=== PATIENT | female | born 1995 | race Caucasian/White ===

== ENCOUNTER → 2018-05-05 | Day surgery (SDC) | payer OTHER ==
[~2018-05-05] MED LIST: ADDERALL 10 MG10 MG; EPHEDRINE SULFATE INJ 50 MG/10 ML SYR ONE; FENTANYL CITRATE/PF 100MCG/2 ML INJ ONE; LORAZEPAM0.5 MG PO; METOCLOPRAMIDE HCL 10 MG/2ML VIAL ONE; MIDAZOLAM HCL 2 MG/2 ML VIAL ONE; PROPOFOL IV EMULSION 10 MG/ML 50 ML VIAL ONE
--- OUTSIDE RECORDS SUMMARY | 2018-05-05 11:24 | XMS REPORT | Clinical Summary ---
Author Author RAD [facility] Organization [facility] Address Unknown Phone Unavailable Care Team Providers Care Commercial Underwriter Name Role Phone Sharpanderson PCP Allergies No Known Allergies Medications End Date Status Medication Sig Dispensed Refills Start Date Active venlafaxine (EFFEXOR) 75 Take 75 mg by 0 MG tabletIndications: mouth 2 (two) Abnormal liver enzymes, times daily. Delivery normal, Immunity status testing, Urinary tract infection without hematuria, site unspecified Active ALPRAZolam (XANAX) 0.25 Take 0.25 mg 0 MG tabletIndications: by mouth Abnormal liver enzymes, every night Delivery normal, Immunity as needed for status testing, Urinary Anxiety. tract infection without hematuria, site unspecified 06/07/2017 Discontinued NORETHINDRONE AC-ETH Take by 0 ESTRADIOL (LOESTRIN mouth. 1.08/24, 21, ORAL)Indications: Abnormal liver enzymes, Delivery normal, Immunity status testing, Urinary tract infection without hematuria, site unspecified Active Problems No known active problems Encounters Care Team Description Date Type Specialty Kristen Palencia Appointment (unable to leave a . letter sent to patient) 02/02/2018 Telephone Hepatology Elizabeth Hansen E 07/06/2017 Abstract Hepatology Oxana Ramirez RN Abnormal liver function 06/21/2017 Orders Only Hepatology Roddy Fisher MD Abnormal liver function (Primary Dx); Immunity status testing; Positive REYES (antinuclear antibody); CMV (cytomegalovirus infection) status negative 06/07/2017 Office Visit Hepatology after 05/04/2017 Family History Medical History Relation Name Comments No Known Problem Father No Known Problem Mother Relation Name Status Comments Father Mother Social History Date Tobacco Use Types Packs/Day Years Used Current Every Day Smoker 1 Smokeless Tobacco: Never Used Alcohol Use Drinks/Week oz/Week Comments No Sex Assigned at Date Recorded Not on file Industry Job Start Date Occupation Not on file Not on file Not on file Travel End Travel History Travel Start No recent travel history available. Last Filed Vital Signs Time Taken Vital Sign Reading - Blood Pressure - - Pulse - - Temperature - - Respiratory Rate - - Oxygen Saturation - - Inhaled Oxygen - Concentration 06/07/2017 1:17 PM CDT Weight 52.8 kg (116 lb 4.8 oz) - Height - 06/07/2017 1:17 PM CDT Body Mass Index 21.97 Plan of Treatment Health Maintenance Due Date Last Done Comments INFLUENZA VACCINE 12/26/2017 Procedures Comments Procedure Name Priority Date/Time Associated Diagnosis HEPATIC FUNCTION PANEL Routine 06/07/2017 Abnormal liver function 2:29 PM CDT after 05/04/2017 Results * Hepatic function panel (06/07/2017 2:29 PM CDT) Protein, Total 7.1 6.0 - 8.3 gm/dL [facility] Albumin 4.4 3.5 - 5.0 g/dL [facility] Total Bilirubin 0.3 0.2 - 1.2 mg/dL [facility] Bilirubin, Direct 0.2 0.1 - 0.5 mg/dL [facility] Alkaline Phosphatase 79 40 - 150 U/L [facility] AST 22 5 - 34 U/L [facility] ALT 28 6 - 55 U/L [facility] Specimen Blood Performing Organization Address City/State/Zipcode Phone Number [facility] [address], [place] [id number] [facility] after 05/04/2017 Insurance Payer Benefit Subscriber ID Type Phone Address Plan / Group BLUE CROSS/BLUE SHIELD BCBS PPO xxxxxxxxxxxxxxx PPO [phone] [address] [place] [address] CHOICE MEDICAID MEDICAID xxxxxxxxx Medicaid [place]
--- OUTSIDE RECORDS SUMMARY | 2018-05-05 11:24 | XMS REPORT ---
Author [facility] Address Unknown Phone Unavailable Care Team Providers Care White Sourer Name Role Phone Andi ZURITA Unavailable Unavailable Payers Payer Name Policy Type Policy Number Effective Date Expiration Date Problems This patient has no known problems. Allergies, Adverse Reactions, Alerts Allergy Name Allergy Type Status Severity Reaction(s) Onset Date Inactive Date Treating Clinician Comments No Known Allergies DA Active U 2018-04-24 00:00:00 No Known Allergies DA Active U 2018-02-06 00:00:00 No Known Allergies DA Active U 2016-10-13 00:00:00 Medications This patient has no known medications. Results Test Description Test Time Test Comments Text Results Atomic Results Result Comments - CT ABD PELVIS W/CONT 2018-04-26 16:46:00 Name: JAIDEN AMIN [facility] : 1995 Age/S: 22 / F [address] [place] [address] Unit #: [id number] Loc: [place] [address] Phys: Ho Faust MD Acct: [id number] Dis Date: Status: REG ER PHONE #: [phone] Exam Date: 04/26/2018 1609 FAX #: [phone] Reason: Diffuse abd pain elevated lipase level EXAMS: CPT CODE: [id number] CT ABD PELVIS W/CONT 14458 EXAM: CT ABDOMEN AND PELVIS WITH CONTRAST DATE: 04/26/2018 11:44 AM : 1995; Age: 22 years y/o Female INDICATION: Diffuse abd pain elevated lipase level COMPARISON: None. TECHNIQUE: Volumetric CT of the abdomen and pelvis is acquired following the intravenous administration of contrast. Axial, coronal and sagittal images are provided. IV contrast: 100 mL Isovue Enteric contrast: 10 mL Gastrografin DLP: 180 mGy-cm CT imaging performed at this location utilizes radiation dose optimization techniques which include one or more of the following: - Automated exposure control -Adjustment of the mA and/or kV according to patient size -Use of iterative reconstruction technique FINDINGS: Lower thorax: Clear. Liver: Normal. Gallbladder: No calcified stones or wall thickening. Adrenals: Normal. Kidneys and ureters: Normal. Spleen: Normal. Pancreas: Normal. Gastrointestinal tract: Stomach: Not well distended which limits evaluation Small bowel: Normal. Appendix: Not seen. No inflammation. Colon: Normal. Peritoneum, mesentery and retroperitoneum: No free air, lymphadenopathy, ascites or loculated fluid. PAGE 1 Signed Report (CONTINUED) Name: JAIDEN AMIN AY [facility] : 1995 Age/S: 22 / F [address] [place] [address] Unit #: [id number] Loc: [place] [address] Phys: Ho Faust MD Acct: [id number] Dis Date: Status: REG ER PHONE #: [phone] Exam Date: 04/26/2018 1609 FAX #: [phone] Reason: Diffuse abd pain elevated lipase level EXAMS: CPT CODE: [id number] CT ABD PELVIS W/CONT 26598 <Continued> Reproductive organs: IUD is noted in place. Bladder: Normal. Soft tissues: Normal. Bones: No acute abnormality. IMPRESSION: 1. No acute intra-abdominal process. SL: [id number] at 1646 Reported and signed by: Nahomi Newell D.O. CC: Robson Miller MD; Ho Faust MD Technologist:RT Stefan(R) CTDI: DLP: Trnscb Date/Time: 04/26/2018 (1645) [email or web address] Orig Print D/T: S: 04/26/2018 (164) CTDI: DLP: PAGE 2 Signed Report COMPREHENSIVE METABOLIC PANEL 2018-04-26 15:31:00 SODIUM (test code=NA) 139 mEq/L 134-147 POTASSIUM (test code=K) 3.5 mEq/L 3.4-5.0 CHLORIDE (test code=CL) 106 mEq/L 100-108 CARBON DIOXIDE (test code=CO2) 28 mEq/L 21-33 ANION GAP (test code=GAP) 9 0-20 GLUCOSE (test code=GLU) 80 mg/dL 70-110 BLOOD UREA NITROGEN (test code=BUN) 12 mg/dL 7-18 GLOMERULAR FILTRATION RATE (test code=GFR) 127.5 110-120 Units of measure=ml/min/1.73 m2 CREATININE (test code=CREAT) 0.6 mg/dL 0.6-1.3 TOTAL PROTEIN (test code=PROT) 7.9 g/dL 6.4-8.2 ALBUMIN (test code=ALB) 4.20 g/dL 3.4-5.0 CALCIUM (test code=CA) 9.0 mg/dL 8.0-10.5 BILIRUBIN TOTAL (test code=BILT) 0.50 mg/dL 0.0-1.0 SGOT/AST (test code=AST) 9 IUnit/L 15-37 SGPT/ALT (test code=ALT) 30 IUnit/L 15-65 ALKALINE PHOSPHATASE TOTAL (test code=ALKP) 115 IUnit/L 20-125 [id number] 15:31:00* Test Item Value Reference Range Comments LIPASE (test code=LIP) 477 IUnit/L 73-393 HCG SERUM [id number] 15:31:00* Test Item Value Reference Range Comments HCG SERUM QUAL (test code=HCGQL) SERUM NEGATIVE NEGATIVE [id number] 15:31:00* Test Item Value Reference Range Comments TROPONIN-I (test code=TROPI) < 0.015 ng/mL 0.000-0.045 Negative: <=0.045 Positive: >=0.046 Correlation with serial results, other cardiac markers andclinical findings is necessary to determine the clinicalsignificance of this result. Results using different methodologies should not be comparedto one another as quantitative results may vary by method. URINALYSIS [id number] 15:28:00* Test Item Value Reference Range Comments UA COLOR (test code=COLU) COLORLESS YEL/STRAW UA APPEARANCE (test code=APPU) CLEAR CLEAR UA GLUCOSE DIPSTICK (test code=DGLUU) NEGATIVE NEGATIVE UA BILIRUBIN DIPSTICK (test code=BILU) NEGATIVE NEGATIVE UA KETONE DIPSTICK (test code=KETU) NEGATIVE NEGATIVE UA SPECIFIC GRAVITY (test code=SGU) 1.004 1.005-1.030 UA BLOOD DIPSTICK (test code=CAROLE) NEGATIVE NEGATIVE UA PH DIPSTICK (test code=JESS) 6.0 5.0-7.0 UA PROTEIN DIPSTICK (test code=PROU) NEGATIVE NEGATIVE UA UROBILINIOGEN DIPSTICK (test code=URO) 0.2 mg/dL 0.2-1.0 UA NITRITE DIPSTICK (test code=NIURKA) NEGATIVE NEGATIVE UA LEUKOCYTE ESTERASE DIPSTICK (test code=LEUU) NEGATIVE NEGATIVE UA WBC (test code=WBCU) 0-3 WBC/HPF 0-3 UA RBC (test code=RBCU) 0-3 RBC/HPF 0-3 UA BACTERIA (test code=BACU) NONE SEEN /HPF NONE SEEN UA SQUAMOUS CELLS (test code=SQU) 0-5 /HPF NONE SEEN UA TRANSITIONAL CELLS (test code=TRANU) TRACE /HPF NONE SEEN COMMENTS: Clean CatchCOMPREHENSIVE METABOLIC [id number] 15:27:00* Test Item Value Reference Range Comments SODIUM (test code=NA) 139 mEq/L 134-147 POTASSIUM (test code=K) 3.5 mEq/L 3.4-5.0 CHLORIDE (test code=CL) 106 mEq/L 100-108 CARBON DIOXIDE (test code=CO2) 28 mEq/L 21-33 ANION GAP (test code=GAP) 9 0-20 GLUCOSE (test code=GLU) 80 mg/dL 70-110 BLOOD UREA NITROGEN (test code=BUN) 12 mg/dL 7-18 GLOMERULAR FILTRATION RATE (test code=GFR) 127.5 110-120 Units of measure=ml/min/1.73 m2 CREATININE (test code=CREAT) 0.6 mg/dL 0.6-1.3 TOTAL PROTEIN (test code=PROT) 7.9 g/dL 6.4-8.2 ALBUMIN (test code=ALB) 4.20 g/dL 3.4-5.0 CALCIUM (test code=CA) 9.0 mg/dL 8.0-10.5 BILIRUBIN TOTAL (test code=BILT) 0.50 mg/dL 0.0-1.0 SGOT/AST (test code=AST) 9 IUnit/L 15-37 SGPT/ALT (test code=ALT) IUnit/L 15-65 ALKALINE PHOSPHATASE TOTAL (test code=ALKP) 115 IUnit/L 20-125 [id number] 15:27:00* Test Item Value Reference Range Comments LIPASE (test code=LIP) 477 IUnit/L 73-393 HCG SERUM [id number] 15:27:00* Test Item Value Reference Range Comments HCG SERUM QUAL (test code=HCGQL) SERUM NEGATIVE NEGATIVE [id number] 15:27:00* Test Item Value Reference Range Comments TROPONIN-I (test code=TROPI) < 0.015 ng/mL 0.000-0.045 Negative: <=0.045 Positive: >=0.046 Correlation with serial results, other cardiac markers andclinical findings is necessary to determine the clinicalsignificance of this result. Results using different methodologies should not be comparedto one another as quantitative results may vary by method. DRUGS OF ABUSE SCREEN [id number] 15:27:00* Test Item Value Reference Range Comments URN COCAINE (test code=COCAURN) NEGATIVE NEGATIVE URN CANNABINOIDS (test code=CANNABURN) NEGATIVE NEGATIVE URN AMPHETAMINE (test code=AMPHETURN) NEGATIVE NEGATIVE URN BARBITURATE (test code=BARBITURN) NEGATIVE NEGATIVE URN BENZODIAZEPINE (test code=BENZOURN) NEGATIVE NEGATIVE Cut-off value:200 ng/mL URN OPIATES (test code=OPIATURN) NEGATIVE NEGATIVE Cut-off value:2000 ng/mL URN PHENCYCLIDINE (PCP) (test code=PHENCURN) NEGATIVE NEGATIVE Cutoffs:Barbiturates 200 ng/mLBenzodiazepines 200 ng/mLTHC Cannabinoids 50 ng/mLOpiates(Morphine) 2000 ng/mLAmphetamine 1000 ng/mLCocaine 300 ng/mLPCP phencyclidine 25 ng/mL Unconfirmed screening results shouldnot be used for non-medical purposes. PROTHROMBIN [id number] 15:21:00* Test Item Value Reference Range Comments PROTHROMBIN TIME PATIENT (test code=PTP) 11.5 SECONDS 9.3-12.9 INTERNATIONAL NORMAL RATIO (test code=INR) 1.0 0.8-1.2 TARGET INR BY INDICATION Indication INR1. Prophylaxis of venous thrombosis 2.0 - 3.0 (orthopedic surgery), Prophylaxis of venous thrombosis (other than high-risk surgery), Treatment of Deep Vein Thrombosis/Pulmonary Embolism, Prevention of systemic embolism - Tissue heart valves, Acute Myocardial Infarction (to prevent systemic embolism), Valvular heart disease, Atrial Fibrillation, Bileaflet mechanical valve in aortic position.2. Mechanical prosthetic valves (high risk), 2.5 - 3.5 Presence of Lupus Anticoagulant or Antiphospholipid Antibodies, Prevention of systemic embolism - Acute Myocardial Infarction (to prevent recurrent infarct). THROMBOPLASTIN TIME [id number] 15:21:00* Test Item Value Reference Range Comments THROMBOPLASTIN TIME PARTIAL (test code=PTT) 33.3 Seconds 25.0-39.5 Therapeutic Range: 61.8-83.8 Sec Effective 04/25/2013 COMPREHENSIVE METABOLIC [id number] 15:19:00* Test Item Value Reference Range Comments SODIUM (test code=NA) mEq/L 134-147 POTASSIUM (test code=K) mEq/L 3.4-5.0 CHLORIDE (test code=CL) mEq/L 100-108 CARBON DIOXIDE (test code=CO2) mEq/L 21-33 ANION GAP (test code=GAP) 0-20 GLUCOSE (test code=GLU) mg/dL 70-110 BLOOD UREA NITROGEN (test code=BUN) mg/dL 7-18 GLOMERULAR FILTRATION RATE (test code=GFR) 110-120 CREATININE (test code=CREAT) mg/dL 0.6-1.3 TOTAL PROTEIN (test code=PROT) g/dL 6.4-8.2 ALBUMIN (test code=ALB) g/dL 3.4-5.0 CALCIUM (test code=CA) mg/dL 8.0-10.5 BILIRUBIN TOTAL (test code=BILT) mg/dL 0.0-1.0 SGOT/AST (test code=AST) IUnit/L 15-37 SGPT/ALT (test code=ALT) IUnit/L 15-65 ALKALINE PHOSPHATASE TOTAL (test code=ALKP) IUnit/L 20-125 [id number] 15:19:00* Test Item Value Reference Range Comments LIPASE (test code=LIP) IUnit/L 73-393 HCG SERUM [id number] 15:19:00* Test Item Value Reference Range Comments HCG SERUM QUAL (test code=HCGQL) SERUM NEGATIVE NEGATIVE [id number] 15:19:00* Test Item Value Reference Range Comments TROPONIN-I (test code=TROPI) ng/mL 0.000-0.045 CBC W/AUTO [id number] 15:13:00* Test Item Value Reference Range Comments WHITE BLOOD CELL (test code=WBC) 5.07 x10 3/uL 4.5-11.0 RED BLOOD CELL (test code=RBC) 4.11 x10 6/uL 3.54-5.02 HEMOGLOBIN (test code=HGB) 12.6 g/dL 11.0-15.0 HEMATOCRIT (test code=HCT) 39.2 % 33.0-45.0 MEAN CELL VOLUME (test code=MCV) 95.4 fL 81.0-99.0 MEAN CELL HGB (test code=MCH) 30.7 pg 27.0-33.0 MEAN CELL HGB CONCETRATION (test code=MCHC) 32.1 g/dL 33.0-37.0 RED CELL DISTRIBUTION WIDTH CV (test code=RDW) 12.4 % 11.5-14.5 RED CELL DISTRIBUTION WIDTH SD (test code=RDW-SD) 43.5 fL 37.0-54.0 PLATELET COUNT (test code=PLT) 286 x10 3/uL 150-400 MEAN PLATELET VOLUME (test code=MPV) 9.1 fL 7.0-9.0 NEUTROPHIL % (test code=NT%) 56.2 % 56.0-77.0 IMMATURE GRANULOCYTE % (test code=IG%) 0.2 % 0.0-2.0 LYMPHOCYTE % (test code=LY%) 35.9 % 14.0-32.0 MONOCYTE % (test code=MO%) 6.9 % 4.8-9.0 EOSINOPHIL % (test code=EO%) 0.4 % 0.3-3.7 BASOPHIL % (test code=BA%) 0.4 % 0.0-2.0 NUCLEATED RBC % (test code=NRBC%) 0.0 % 0-0 NEUTROPHIL # (test code=NT#) 2.85 x10 3/uL 2.0-7.6 IMMATURE GRANULOCYTE # (test code=IG#) 0.01 x10 3/uL 0.00-0.03 LYMPHOCYTE # (test code=LY#) 1.82 x10 3/uL 1.0-3.8 MONOCYTE # (test code=MO#) 0.35 x10 3/uL 0.1-0.8 EOSINOPHIL # (test code=EO#) 0.02 x10 3/uL 0.0-0.2 BASOPHIL # (test code=BA#) 0.02 x10 3/uL 0.0-0.2 NUCLEATED RBC # (test code=NRBC#) 0.00 x10 3/uL 0.0-0.1 MANUAL DIFF REQUIRED (test code=MDIFF) NO - XR CHEST 1 [id number] 12:04:00 FAX: Robson Leonard [phone] [place]: St: PRE FAX: Ho Faust MD Name: JAIDEN AMIN [facility] : 1995 Age/S: 22/F [address] [place] [address] Unit #: [id number] Loc: [place] [address] Phys: Ho Faust MD Acct: [id number] Dis Date: Status: PRE ER PHONE #: [phone] Exam Date: 04/26/2018 1157 FAX #: [phone] Reason: Abdominal Pain EXAMS: CPT CODE: [id number] XR CHEST 1 V 01720 EXAM: XR CHEST 1 VIEW DATE: 04/26/2018 11:44 AM : 1995; Age: 22 years y/o Female INDICATION: Abdominal Pain COMPARISON: April 24, 2018 TECHNIQUE: AP chest. FINDINGS/ IMPRESSION: Lines, tubes and hardware: None. Heart, mediastinum and lungs: The heart size is normal for technique. The mediastinal contours are normal. Pulmonary vascularity is normal. The lungs are clear. SL: [id number] at 1204 Reported and signed by: Nahomi Newell D.O. CC: Robson Miller MD; Ho Faust MD Technologist: RT Ivan(R) Trnscrd Date/Time/By: 04/26/2018 (5744) : By: [email or web address] Orig Print D/T: S: 04/26/2018 (2664) PAGE 1 Signed Report CBC W/AUTO [id number] 19:13:00* Test Item Value Reference Range Comments WHITE BLOOD CELL (test code=WBC) 4.73 x10 3/uL 4.5-11.0 RED BLOOD CELL (test code=RBC) 4.04 x10 6/uL 3.54-5.02 HEMOGLOBIN (test code=HGB) 12.2 g/dL 11.0-15.0 HEMATOCRIT (test code=HCT) 37.8 % 33.0-45.0 MEAN CELL VOLUME (test code=MCV) 93.6 fL 81.0-99.0 MEAN CELL HGB (test code=MCH) 30.2 pg 27.0-33.0 MEAN CELL HGB CONCETRATION (test code=MCHC) 32.3 g/dL 33.0-37.0 RED CELL DISTRIBUTION WIDTH CV (test code=RDW) 12.0 % 11.5-14.5 RED CELL DISTRIBUTION WIDTH SD (test code=RDW-SD) 41.6 fL 37.0-54.0 PLATELET COUNT (test code=PLT) 286 x10 3/uL 150-400 MEAN PLATELET VOLUME (test code=MPV) 8.9 fL 7.0-9.0 NEUTROPHIL % (test code=NT%) 56.7 % 56.0-77.0 IMMATURE GRANULOCYTE % (test code=IG%) 0.4 % 0.0-2.0 LYMPHOCYTE % (test code=LY%) 35.1 % 14.0-32.0 MONOCYTE % (test code=MO%) 6.6 % 4.8-9.0 EOSINOPHIL % (test code=EO%) 0.4 % 0.3-3.7 BASOPHIL % (test code=BA%) 0.8 % 0.0-2.0 NUCLEATED RBC % (test code=NRBC%) 0.0 % 0-0 NEUTROPHIL # (test code=NT#) 2.68 x10 3/uL 2.0-7.6 IMMATURE GRANULOCYTE # (test code=IG#) 0.02 x10 3/uL 0.00-0.03 LYMPHOCYTE # (test code=LY#) 1.66 x10 3/uL 1.0-3.8 MONOCYTE # (test code=MO#) 0.31 x10 3/uL 0.1-0.8 EOSINOPHIL # (test code=EO#) 0.02 x10 3/uL 0.0-0.2 BASOPHIL # (test code=BA#) 0.04 x10 3/uL 0.0-0.2 NUCLEATED RBC # (test code=NRBC#) 0.00 x10 3/uL 0.0-0.1 MANUAL DIFF REQUIRED (test code=MDIFF) NO LIPID PROFILE (CORONARY RISK)2018-04-24 18:51:00* Test Item Value Reference Range Comments TRIGLYCERIDES (test code=TRIG) 90 mg/dL 40-150 CHOLESTEROL (test code=CHOL) 187 mg/dL <200 CHOLESTEROL/HDL RATIO (test code=CHOLHDL) 3.46 RATIO 3.27-4.44 RISK ASSOCIATED WITH CHOL/HDL RATIOS: RISK MALE FEMALE1/2 AVERAGE 3.43 3.27AVERAGE 4.97 4.442X AVERAGE 9.55 7.053X AVERAGE 23.39 11.04 NOTE THAT THE REFERENCE VALUE IS RELATEDTO RISK LEVELS RECOMMENDED BY THE NATL.HEART, LUNG, AND BLOOD INST. HDL CHOLESTEROL (test code=HDL) 54.0 mg/dL 39-96 LIPOPROTEIN LDL (test code=LDL) 113 mg/dL 0-100 <100 [id number] NEAR OPTIMAL/ABOVE [id number] HIGH>YF=474 VERY HIGH*Guidelines provided by the National Cholesterol EducationProgram Adult Treatment Panel III HEPATIC FUNCTION [id number] 18:51:00* Test Item Value Reference Range Comments TOTAL PROTEIN (test code=PROT) 7.9 g/dL 6.4-8.2 ALBUMIN (test code=ALB) 4.30 g/dL 3.4-5.0 BILIRUBIN TOTAL (test code=BILT) 0.50 mg/dL 0.0-1.0 BILIRUBIN DIRECT (test code=BILD) 0.10 MG/DL 0.0-0.30 BILIRUBIN INDIRECT (test code=BILIND) 0.40 MG/DL SGOT/AST (test code=AST) 12 IUnit/L 15-37 SGPT/ALT (test code=ALT) 39 IUnit/L 15-65 ALKALINE PHOSPHATASE TOTAL (test code=ALKP) 129 IUnit/L 20-125 [id number] 18:51:00* Test Item Value Reference Range Comments LIPASE (test code=LIP) 382 IUnit/L 73-393 HCG SERUM [id number] 18:51:00* Test Item Value Reference Range Comments HCG SERUM QUAL (test code=HCGQL) SERUM NEGATIVE NEGATIVE PROTHROMBIN [id number] 18:49:00* Test Item Value Reference Range Comments PROTHROMBIN TIME PATIENT (test code=PTP) 11.4 SECONDS 9.3-12.9 INTERNATIONAL NORMAL RATIO (test code=INR) 1.0 0.8-1.2 TARGET INR BY INDICATION Indication INR1. Prophylaxis of venous thrombosis 2.0 - 3.0 (orthopedic surgery), Prophylaxis of venous thrombosis (other than high-risk surgery), Treatment of Deep Vein Thrombosis/Pulmonary Embolism, Prevention of systemic embolism - Tissue heart valves, Acute Myocardial Infarction (to prevent systemic embolism), Valvular heart disease, Atrial Fibrillation, Bileaflet mechanical valve in aortic position.2. Mechanical prosthetic valves (high risk), 2.5 - 3.5 Presence of Lupus Anticoagulant or Antiphospholipid Antibodies, Prevention of systemic embolism - Acute Myocardial Infarction (to prevent recurrent infarct). THROMBOPLASTIN TIME [id number] 18:49:00* Test Item Value Reference Range Comments THROMBOPLASTIN TIME PARTIAL (test code=PTT) 31.4 Seconds 25.0-39.5 Therapeutic Range: 61.8-83.8 Sec Effective 04/25/2013 LIPID PROFILE (CORONARY RISK)2018-04-24 18:48:00* Test Item Value Reference Range Comments TRIGLYCERIDES (test code=TRIG) 90 mg/dL 40-150 CHOLESTEROL (test code=CHOL) 187 mg/dL <200 CHOLESTEROL/HDL RATIO (test code=CHOLHDL) 3.46 RATIO 3.27-4.44 RISK ASSOCIATED WITH CHOL/HDL RATIOS: RISK MALE FEMALE1/2 AVERAGE 3.43 3.27AVERAGE 4.97 4.442X AVERAGE 9.55 7.053X AVERAGE 23.39 11.04 NOTE THAT THE REFERENCE VALUE IS RELATEDTO RISK LEVELS RECOMMENDED BY THE NATL.HEART, LUNG, AND BLOOD INST. HDL CHOLESTEROL (test code=HDL) 54.0 mg/dL 39-96 LIPOPROTEIN LDL (test code=LDL) 113 mg/dL 0-100 <100 [id number] NEAR OPTIMAL/ABOVE [id number] HIGH>KA=909 VERY HIGH*Guidelines provided by the National Cholesterol EducationProgram Adult Treatment Panel III HEPATIC FUNCTION [id number] 18:48:00* Test Item Value Reference Range Comments TOTAL PROTEIN (test code=PROT) 7.9 g/dL 6.4-8.2 ALBUMIN (test code=ALB) 4.30 g/dL 3.4-5.0 BILIRUBIN TOTAL (test code=BILT) 0.50 mg/dL 0.0-1.0 BILIRUBIN DIRECT (test code=BILD) 0.10 MG/DL 0.0-0.30 BILIRUBIN INDIRECT (test code=BILIND) 0.40 MG/DL SGOT/AST (test code=AST) 12 IUnit/L 15-37 SGPT/ALT (test code=ALT) 39 IUnit/L 15-65 ALKALINE PHOSPHATASE TOTAL (test code=ALKP) 129 IUnit/L 20-125 [id number] 18:48:00* Test Item Value Reference Range Comments LIPASE (test code=LIP) 382 IUnit/L 73-393 HCG SERUM [id number] 18:48:00* Test Item Value Reference Range Comments HCG SERUM QUAL (test code=HCGQL) NEGATIVE - XR ABD ACUTE [id number] 18:45:00 FAX: Robson Leonard [phone] [place]: St: REG FAX: Julio César Quiros [phone] Name: JAIDEN AMIN [facility] [place] : 1995 Age/S: 22/F [address] [place] [address] Bl Unit #: [id number] Loc: [place] [address] Phys: Julio César Quiros Acct: [id number] Dis Date: Status: REG ER PHONE #: [phone] Exam Date: 04/24/2018 1827 FAX #: [phone] Reason: upper abdominal and c hest pain EXAMS: CPT CODE: [id number] XR ABD ACUTE W/CHEST 10119 SINGLE VIEW RADIOGRAPH CHEST, 2 VIEW RADIOGRAPHS ABDOMEN INDICATION: Upper abdominal and chest pain . TECHNIQUE: Si ngle view radiograph chest. Supine and upright frontal abdominal radiogra phs. COMPARISONS: None FINDINGS: CHEST : There is no acute osseous fracture or dislocation. There is no subdiaphragmatic free gas. The cardiomediastinal size and con tour are normal. There is no pneumothorax, pleural effusion or org anized pneumonia. ABDOMEN: There is no acute osseous fracture or dislocation. There is no subdiaphragmatic free gas. T here is a nonspecific, nonobstructed bowel gas pattern. Ther e is an intrauterine device present. There are no abnormal intra-a bdominal calcifications. The solid abdominal organs appear to be normal si ze. IMPRESSION: 1. No acute cardiopulmonary process. 2. No acute intra-abdominal process. Electronically Signed by Katherin Strong on 04/24 at 1845 Reported and signed by: Clarke Strong D.O. PAGE 1 Signed Report (CONTINUED) FAX: Robson Leonard [phone] [place]: St: REG FAX: Julio César Quiros [phone] Name: JAIDEN AMIN [facility] : 1995 Age/S: 22/F [address] [place] [address] Blvd Unit #: [id number] [place]: [place] [address] Phys: Julio César Quiros Acct: [id number] Dis Date: Status: REG ER PHONE #: [phone] Exam Date: 04/24/2018 1827 FAX #: [phone] Reason: upper abdominal and chest pain EXAMS: CPT CODE: [id number] XR ABD ACUTE W/CHEST 43362 <Continued> CC: Robson Miller MD; Julio César SARAH Technologist: RT Shadi(Zonia) Trnscrd Date/Time/By: 04/24/2018 (1844) : By: [email or web address] Orig Print D/T: S: 04/24/2018 (1848) PAGE 2 Signed Report TROPONIN-I [id number] 18:28:00* Test Item Value Reference Range Comments TROPONIN-I RAPID (test code=TROPIRAP) 0.00 ng/mL 0.00-0.08 Performed by certified shotblast operator [facility] Global Task Force with joint leadership from the EuropeanSociety of Cardiology (ESC), the [place] [employer] Foundation (ACCF), the [place] [employer] Association(AHA) and the World Heart Federation (WHF) refined past criteria of myocardial infarction (NY) with a universal definition of myocardial infarction that supports the use of cTnI as a preferred biomarker for myocardial injury. The universal definition of NY, according to this taskforce, is defined as a typical rise and gradual fall ofcardiac biomarkers (preferably troponin) with at least onevalue above the 99th percentile of the upper reference limit (URL) together with evidence of myocardial ischemia with at least one of the following:* ischemic symptoms,* pathological Q waves on electrocardiogram (ECG),* ischemic ECG changes,* or imaging evidence of new loss of viable myocardium or new regional wall motion abnormality. An elevated troponin value alone is not sufficient todiagnose a myocardial infarction. Rather, the patient sclinical presentation (history, physical exam) and ECGshould be used in conjunction with troponin in thediagnostic evaluation of suspected myocardial infarction. Aserial sampling protocol is recommended to facilitate the identification of temporal changes in troponin levels characteristic of [place]. CHEMISTRY 8 [id number] 18:21:00* Test Item Value Reference Range Comments ISTAT-SODIUM (test code=NAP) MMOL/L 134-147 ISTAT-POTASSIUM (test code=KP) MMOL/L 3.4-5.0 ISTAT-CHLORIDE (test code=CLP) MMOL/L 100-108 ISTAT CARBON DIOXIDE (test code=ISTAT-CO2) mmol/L 21-33 ISTAT CALCIUM IONIZED (test code=ISTAT-DEE DEE) MG/DL 1.12-1.32 ISTAT-GLUCOSE (test code=GLUP) MG/DL 70-110 ISTAT-BUN (test code=BUNP) MG/DL 7-18 BEDSIDE CREATININE (test code=CREATBED) MG/DL 0.6-1.3 GLOMERULAR FILTRATION RATE POC (test code=GFRBED) 167 ML/MIN CHEMISTRY 8 [id number] 18:21:00* Test Item Value Reference Range Comments ISTAT-SODIUM (test code=NAP) 141 MMOL/L 134-147 ISTAT-POTASSIUM (test code=KP) 3.6 MMOL/L 3.4-5.0 ISTAT-CHLORIDE (test code=CLP) 106 MMOL/L 100-108 Performed by certified shotblast operator at [facility] ISTAT CARBON DIOXIDE (test code=ISTAT-CO2) 23.0 mmol/L 21-33 ISTAT CALCIUM IONIZED (test code=ISTAT-DEE DEE) 1.13 MG/DL 1.12-1.32 ISTAT-GLUCOSE (test code=GLUP) 100 MG/DL 70-110 ISTAT-BUN (test code=BUNP) 10 MG/DL 7-18 BEDSIDE CREATININE (test code=CREATBED) 0.5 MG/DL 0.6-1.3 GLOMERULAR FILTRATION RATE POC (test code=GFRBED) 167 ML/MIN HEPATIC FUNCTION [id number] 16:29:00* Test Item Value Reference Range Comments TOTAL PROTEIN (BEAKER) (test hyrr=031) 7.1 gm/dL 6.0-8.3 ALBUMIN (BEAKER) (test enbb=1046) 4.4 g/dL 3.5-5.0 BILIRUBIN TOTAL (BEAKER) (test djfs=829) 0.3 mg/dL 0.2-1.2 BILIRUBIN DIRECT (BEAKER) (test uhji=388) 0.2 mg/dL 0.1-0.5 ALKALINE PHOSPHATASE (BEAKER) (test szzx=715) 79 U/L 40-150 AST (SGOT) (BEAKER) (test mlrt=961) 22 U/L 5-34 ALT (SGPT) (BEAKER) (test wrmb=635) 28 U/L 6-55 HERPES VIRUS ANTIBODY, [id number] 21:46:00* Test Item Value Reference Range Comments HERPES VIRUS IGM (BEAKER) (test qnqw=2963) Negative HERPES VIRUS ANTIBODY, [id number] 15:45:00* Test Item Value Reference Range Comments HERPES VIRUS IGG (BEAKER) (test nngx=8446) Negative EBV-VCA ANTIBODY, [id number] 15:30:00* Test Item Value Reference Range Comments OLGA-POSEY VCA IGG (BEAKER) (test bjqn=613) Positive EBV-VCA ANTIBODY, [id number] 15:30:00* Test Item Value Reference Range Comments OLGA-POSEY VCA IGM (BEAKER) (test ghyg=235) Negative CYTOMEGALOVIRUS ANTIBODY, [id number] 15:30:00* Test Item Value Reference Range Comments CYTOMEGALOVIRUS IGG ANTIBODY (BEAKER) (test ahhb=960) Negative CYTOMEGALOVIRUS ANTIBODY, [id number] 15:30:00* Test Item Value Reference Range Comments CYTOMEGALOVIRUS IGM ANTIBODY (BEAKER) (test wuyc=469) Negative EBV VIRAL [id number] 15:53:00* Test Item Value Reference Range Comments EBV VIRAL LOAD - NEGATIVE (BEAKER) (test intp=3155) Negative or below the linear range of the assay (<500 copies/mL) This assay was performed by real-time PCR for the detection of the Olga-Posey virus (EBV) gene EBNA-1. The test is composed of (1) DNA extraction from patien t specimen, and (2) real-time PCR amplification and detection with RPBX-7-nvkyzc ic primers and probes. A well-conserved region of the EBNA-1 gene is targeted, a long with an internal control sequence used to confirm PCR amplification. Asympt omatic carriers and viral genetic variation, among other factors, can affect the accuracy of nucleic acid testing; therefore, results should be interpreted in l ight of clinical data.This test was developed and its performance characteristic s determined by the [facility] Pathology Department, Section of [facility] Pathology. It has not been cleared or approved by the U.S. Food and Perry g Administration (FDA), since FDA approval is not required for clinical use of [facility] test. Validation was done as required by The Clinical Laboratory Improvement Amendments of 1988.CMV PCR, [id number] 14:56:00* Test Item Value Reference Range Comments CMV VIRAL LOAD - NEGATIVE (BRITTAKER) (test lfdq=5500) Negative or below the linear range of the assay (<375 copies/mL) Cytomegalovirus (CMV) infection can cause significant disease in immunosuppresse d patients. However, it is common for CMV to manifest as a limited infection whi ch is of no clinical significance in immunosuppressed patients or in healthy ind ividuals.Viral load measurements are helpful to identify clinical CMV infection and to guide the pre-emptive management of antiviral therapy. For treatment of CMV infection due to reactivation in transplant recipients, a threshold between 4,000 and 5,000 copies/mL is suggested. For treatment of primary CMV infection, a lower threshold can be used.CMV infection may also be monitored using weekly serial measurements. Serial measurements of CMV DNA viral load can be evaluated by identifying a 10-fold change, as well as assessing the CMV DNA viral load and the clinical context for each patient.The plasma CMV DNA viral load was detected using quantitative polymerase chain reaction and fluorescent monitoring of a s pecific hybridized probe. Genetic variation and other factors can affect the acc uracy of nucleic acid testing. Therefore, the results should be interpreted in l ight of clinical data. A negative result may not exclude the presence of CMV dis ease.This test was developed and its performance characteristics determined by [facility] Pathology Department, Section of Molecular Patholog y. It has not been cleared or approved by the U.S. Food and Drug Administration (FDA), since FDA approval is not required for clinical use of the test. Validati on was done as required by The Clinical Laboratory Improvement Amendments of 198 8.ANTI-NUCLEAR ANTIBODY (REYES)2017-03-10 14:14:00* Test Item Value Reference Range Comments ANTI-NUCLEAR ANTIBODY (REYES) (BEAKER) (test hsib=500) Positive Negative REYES TITER AND [id number] 14:14:00* Test Item Value Reference Range Comments REYES TITER (BEAKER) (test zssi=9580) :640 REYES PATTERN (BEAKER) (test ejhu=3927) Homogeneous [id number] 17:02:00* Test Item Value Reference Range Comments FERRITIN (BEAKER) (test ubaq=948) 7 ng/mL 5-275 URINALYSIS W/ REFLEX URINE [id number] 16:49:00* Test Item Value Reference Range Comments COLOR (BEAKER) (test ofqf=577) Yellow CLARITY (BEAKER) (test fzvr=078) Clear SPECIFIC GRAVITY UA (BEAKER) (test ivka=638) 1.022 1.001-1.035 PH UA (BEAKER) (test jfxq=698) 6.0 5.0-8.0 PROTEIN UA (BEAKER) (test dnvj=460) Negative Negative GLUCOSE UA (BEAKER) (test evdq=319) Negative Negative KETONES UA (BEAKER) (test jsmv=175) Negative Negative BILIRUBIN UA (BEAKER) (test twud=715) Negative Negative BLOOD UA (BEAKER) (test bhkt=528) Negative Negative NITRITE UA (BEAKER) (test lhwz=945) Negative Negative LEUKOCYTE ESTERASE UA (BEAKER) (test yzsv=455) Negative Negative UROBILINOGEN UA (BEAKER) (test mrjn=105) 0.2 mg/dL 0.2-1.0 RBC UA (BEAKER) (test dbvm=546) 0 /HPF WBC UA (BEAKER) (test vzvo=501) < /HPF BACTERIA (BEAKER) (test bqhw=201) Rare MUCUS (BEAKER) (test bzpk=6432) Occasional SQUAMOUS EPITHELIAL (BEAKER) (test eaad=789) 2 /HPF SOURCE(BEAKER) (test nmcy=3942) COMPREHENSIVE METABOLIC [id number] 16:19:00* Test Item Value Reference Range Comments TOTAL PROTEIN (BEAKER) (test zmma=765) 7.7 gm/dL 6.0-8.3 ALBUMIN (BEAKER) (test wdsx=7472) 4.4 g/dL 3.5-5.0 ALKALINE PHOSPHATASE (BEAKER) (test vihw=836) 75 U/L 40-150 BILIRUBIN TOTAL (BEAKER) (test rsha=174) 0.5 mg/dL 0.2-1.2 SODIUM (BEAKER) (test ckua=237) 137 meq/L 136-145 POTASSIUM (BEAKER) (test byxk=717) 4.0 meq/L 3.5-5.1 CHLORIDE (BEAKER) (test slwa=169) 106 meq/L 98-107 CO2 (BEAKER) (test ptyq=429) 20 meq/L 22-29 BLOOD UREA NITROGEN (BEAKER) (test qvop=045) 15 mg/dL 7-21 CREATININE (BEAKER) (test pozl=357) 0.64 mg/dL 0.57-1.25 GLUCOSE RANDOM (BEAKER) (test hizg=472) 82 mg/dL 70-105 CALCIUM (BEAKER) (test whfd=213) 9.3 mg/dL 8.4-10.2 AST (SGOT) (BEAKER) (test gydo=332) 18 U/L 5-34 ALT (SGPT) (BEAKER) (test kzot=059) 15 U/L 6-55 EGFR (BEAKER) (test vfgk=0752) 120 mL/min/1.73 sq m ESTIMATED GFR IS NOT ACCURATE CREATININE CLEARANCE IN PREDICTING GLOMERULAR FILTRATION RATE. ESTIMATED GFR IS NOT APPLICABLE FOR DIALYSIS PATIENTS. BILIRUBIN, [id number] 16:19:00* Test Item Value Reference Range Comments BILIRUBIN DIRECT (BEAKER) (test zrak=679) 0.2 mg/dL 0.1-0.5 HEPATITIS A ANTIBODY, [id number] 16:17:00* Test Item Value Reference Range Comments HEPATITIS A IGG ANTIBODY (BEAKER) (test digc=9482) Reactive Nonreactive HEPATITIS B SURFACE [id number] 16:13:00* Test Item Value Reference Range Comments HEPATITIS B SURFACE ANTIGEN (2) (BEAKER) (test migo=0523) Nonreactive Nonreactive HEPATITIS B SURFACE [id number] 16:13:00* Test Item Value Reference Range Comments HEPATITIS B SURFACE ANTIBODY (BEAKER) (test uzdo=426) 24.9 mIU/mL <8.0 HEPATITIS B CORE ANTIBODY, [id number] 16:13:00* Test Item Value Reference Range Comments HEPATITIS B CORE TOTAL ANTIBODY (BEAKER) (test ouji=482) Nonreactive Nonreactive IRON, TIBC, % SAT. (WITHOUT FERRITIN)2017-03-09 15:54:00* Test Item Value Reference Range Comments IRON (BEAKER) (test dejq=358) 125 ug/dL 40-160 TOTAL IRON BINDING CAPACITY (BEAKER) (test gxdi=469) 550 ug/dL 250-450 IRON % SATURATION (2) (BEAKER) (test nqrm=8090) 23 % 20-55 CBC W/PLT COUNT & AUTO [id number] 14:46:00* Test Item Value Reference Range Comments WHITE BLOOD CELL COUNT (BEAKER) (test zjlx=098) 3.9 K/ L 3.5-10.5 RED BLOOD CELL COUNT (BEAKER) (test btmw=502) 4.50 M/ L 3.93-5.22 HEMOGLOBIN (BEAKER) (test shff=157) 13.0 GM/DL 11.2-15.7 HEMATOCRIT (BEAKER) (test itok=487) 40.4 % 34.1-44.9 MEAN CORPUSCULAR VOLUME (BEAKER) (test whcv=336) 89.8 fL 79.4-94.8 MEAN CORPUSCULAR HEMOGLOBIN (BEAKER) (test tjky=490) 28.9 pg 25.6-32.2 MEAN CORPUSCULAR HEMOGLOBIN CONC (BEAKER) (test bznm=737) 32.2 GM/DL 32.2-35.5 RED CELL DISTRIBUTION WIDTH (BEAKER) (test heoc=780) 13.2 % 11.7-14.4 PLATELET COUNT (BEAKER) (test lklj=945) 253 K/CU MM 150-450 MEAN PLATELET VOLUME (BEAKER) (test guwk=608) 9.4 fL 9.4-12.3 NUCLEATED RED BLOOD CELLS (BEAKER) (test sdxh=862) 0 /100 WBC 0-0 NEUTROPHILS RELATIVE PERCENT (BEAKER) (test tylc=609) 52 % LYMPHOCYTES RELATIVE PERCENT (BEAKER) (test xyig=353) 40 % MONOCYTES RELATIVE PERCENT (BEAKER) (test wzlo=286) 7 % EOSINOPHILS RELATIVE PERCENT (BEAKER) (test qcmx=088) 0 % BASOPHILS RELATIVE PERCENT (BEAKER) (test xkvb=030) 1 % NEUTROPHILS ABSOLUTE COUNT (BEAKER) (test aecd=046) 2.03 K/ L 1.56-6.13 LYMPHOCYTES ABSOLUTE COUNT (BEAKER) (test fgks=880) 1.55 K/ L 1.18-3.74 MONOCYTES ABSOLUTE COUNT (BEAKER) (test zemb=296) 0.27 K/ L 0.24-0.36 EOSINOPHILS ABSOLUTE COUNT (BEAKER) (test bflk=566) 0.01 K/ L 0.04-0.36 BASOPHILS ABSOLUTE COUNT (BEAKER) (test kgtf=890) 0.04 K/ L 0.01-0.08 IMMATURE GRANULOCYTES-RELATIVE PERCENT (BEAKER) (test girg=1765) 0 % 0-1
[2018-05-05 15:15] VITALS: BP 117/81
[2018-05-05 15:33] LABS: WBC,FECAL (FECAL LACTOFERRIN) NEGATIVE (NEGATIVE)
--- NOTE | 2018-05-05 16:17 | Operative Report ---
DATE OF PROCEDURE: May 05, 2018 REFERRING PHYSICIAN: Dr. Joaquim Norton PROCEDURES PERFORMED 1. Esophagogastroduodenoscopy with biopsies. 2. Colonoscopy with biopsies. INDICATIONS FOR EGD: Dyspepsia. INDICATIONS FOR COLONOSCOPY: Lower abdominal pain and chronic diarrhea. MEDICATION: Patient was done under MAC. Please see anesthesiologist's note. PROCEDURE: With the patient in the left lateral decubitus position, the flexible fiberoptic Olympus gastroscope was introduced into the esophagus under direct visualization without any difficulty. There was some patchy erythema noted in the distal esophagus. The scope was then advanced with ease into the stomach. The mucosa overlying the antrum and the body revealed some patchy erythema and low-grade to moderate edema, and biopsies were obtained and sent to stain for H. pylori. The pylorus was of normal contour and shape. It was intubated with ease. The scope was advanced all the way to the 2nd portion of the duodenum. The scope was then withdrawn slowly and biopsies were obtained from the proximal 2nd portion, as well as the duodenal bulb to rule out sprue. The scope was then with withdrawn back into the stomach and retroflexed. Mucosa overlying the fundus and cardia appeared to be within normal limits. The scope was then straightened out. It was subsequently withdrawn. Patient tolerated the procedure well. IMPRESSION 1. Distal esophagitis, mild. 2. Gastritis, biopsied. Biopsies sent to stain for Helicobacter pylori. 3. Rule out sprue. PLAN: Follow up histology. Initiate Protonix 40 mg 1 p.o. q.a.m. a.c. Patient was then turned around. After adequate lubrication of the anal canal, the flexible fiberoptic Olympus colonoscope was inserted into the rectum with ease and advanced all the way to the cecum. The mucosa overlying the cecum appeared to be within normal limits. The ileocecal valve was intubated and scope was advanced into the terminal ileum. Biopsies were obtained. The scope was then withdrawn back into the into the colon. It was then withdrawn slowly. Mucosa overlying the ascending and transverse appeared to be within normal limits. Mild patchy inflammatory changes were noted in the left colon. Random biopsies were obtained. The mucosa overlying the rectum also revealed similar findings and biopsies were obtained. The scope was then retroflexed into the distal rectum. The area around the dentate line appeared to be within normal limits. The scope was then straightened out. It was subsequently withdrawn. Patient tolerated the procedure well. IMPRESSION 1. Patchy mild left-sided colitis. 2. Proctitis, mild. PLAN: Follow up histology. Follow up stool studies. Initiate Bentyl 10 mg 1 p.o. t.i.d. VSL #3 one p.o. daily. Job#: [id number] RI cc:DENNIS NORTON DO
[2018-05-06 15:02] LABS: C DIFFICILE TOXIN A&B AMP PROB NEGATIVE (NEGATIVE)
== END | disposition home or self-care (01) ==
LOC: OR 11:21
PROVIDERS: ATTEND Internal Medicine Gastroenterology
DX: K29.50 Unspecified chronic gastritis without bleeding (principal); K51.50 Left sided colitis without complications; K20.9 Esophagitis, unspecified; K62.89 Other specified diseases of anus and rectum; K76.0 Fatty (change of) liver, not elsewhere classified; E78.5 Hyperlipidemia, unspecified; F32.9 Major depressive disorder, single episode, unspecified; F41.9 Anxiety disorder, unspecified; F17.210 Nicotine dependence, cigarettes, uncomplicated
CPT/HCPCS: 43239; 45380; 81025; 83630; 83993; 87045; 87177; 87328; 87493; J2250; J2704; J2765; 45378

== ENCOUNTER 2018-05-11 10:32 | Emergency (ER) | payer OTHER ==
[~2018-05-11] VITALS: Ht 154.9 cm; Wt 45.4 kg
[~2018-05-11 10:32] MED LIST changes: -EPHEDRINE SULFATE INJ 50 MG/10 ML SYR ONE; -FENTANYL CITRATE/PF 100MCG/2 ML INJ ONE; -METOCLOPRAMIDE HCL 10 MG/2ML VIAL ONE; -MIDAZOLAM HCL 2 MG/2 ML VIAL ONE; -PROPOFOL IV EMULSION 10 MG/ML 50 ML VIAL ONE
--- OUTSIDE RECORDS SUMMARY | 2018-05-11 10:37 | XMS REPORT | Clinical Summary ---
Author Author RAD [facility] Organization [facility] Address Unknown Phone Unavailable Care Team Providers Care Roll Capper Name Role Phone Shailesh PCP Allergies No Known Allergies Medications End [...] status negative 06/07/2017 Office Visit Hepatology after 05/10/2017 Family History Medical History Relation Name Comments [...] Abnormal liver function 2:29 PM CDT after 05/10/2017 Results * Hepatic function panel (06/07/2017 2:29 PM CDT) Protein, Total 7.1 6.0 - 8.3 gm/dL [facility] Albumin 4.4 3.5 - 5.0 g/dL [facility] Total Bilirubin 0.3 0.2 - 1.2 mg/dL [facility] Bilirubin, Direct 0.2 0.1 - 0.5 mg/dL [facility] Alkaline Phosphatase 79 40 - 150 U/L [facility] AST 22 5 - 34 U/L [facility] ALT 28 6 - 55 U/L [facility] Specimen Blood Performing Organization Address City/State/Zipcode Phone Number [facility] [address] [place], [place] [id number] MEDICAL [facility]ENTER after 05/10/2017 Insurance Payer Benefit Subscriber ID Type Phone Address Plan / Group BLUE CROSS/BLUE SHIELD BCBS PPO xxxxxxxxxxxxxxx PPO [phone] [address] [place] [address] CHOICE MEDICAID MEDICAID xxxxxxxxx Medicaid OF [place]
[2018-05-11] MEDS ORDERED: ONDANSETRON HCL INJ 2MG/ML 2ML 2 MG/ML VIAL IV STA (10:47)
[2018-05-11] MEDS ORDERED: SODIUM CHLORIDE 0.9% 1000ML 1,000 ML IV STA (10:47)
[2018-05-11] MEDS ORDERED: PANTOPRAZOLE 40 MG 10ML VIAL IV STA (10:47)
[2018-05-11] MEDS ORDERED: MORPHINE SULFATE 2 MG/ML SYR 1ML IV STA (10:47)
[2018-05-11] MEDS: MORPHINE SULFATE INJ 4 MG/ML INJ 1ML IV ONE ×2 (10:53→13:37)
[2018-05-11] MEDS ORDERED: LIDOCAINE VISC 2% SOLN 15 ML UDC PO ONE (11:00)
[2018-05-11] MEDS ORDERED: MAGNESIUM/ALUMINUM/SIMETHICONE 30 ML UDC PO ONE (11:00)
[2018-05-11 11:21] LABS: BASOPHILS % 0.5 % (0.0-1.0); EOSINOPHILS # (AUTO) 0.1 (0.0-0.4); EOSINOPHILS % 1.4 % (0.0-6.0); HEMATOCRIT 38.2 % (34.2-44.1); HEMOGLOBIN 12.8 g/dL (12.0-16.0); LYMPHOCYTES # (AUTO) 1.2 (1.0-3.2); LYMPHOCYTES % 28.5 % (18.0-39.1); MEAN CORPUSCULAR HEMOGLOBIN 30.3 pg (28-32); MEAN CORPUSCULAR HGB CONC 33.5 g/dL (31-35); MEAN CORPUSCULAR VOLUME 90.3 fL (81-99); MONOCYTES # (AUTO) 0.5 (0.2-0.8); MONOCYTES % 11.3 % (4.4-11.3); NEUTROPHILS # (AUTO) 2.5 (2.1-6.9); NEUTROPHILS % 58.1 % (38.7-80.0); PLATELET COUNT 242 x10e3/uL (140-360); RED BLOOD COUNT 4.23 x10e6/uL (3.6-5.1)
[2018-05-11 11:26] LABS: CLARITY,URINE HAZY (CLEAR); COLOR,URINE YELLOW (YELLOW)
[2018-05-11 11:27] LABS: BILIRUBIN,URINE 1+ (NEGATIVE); KETONES,URINE NEGATIVE (NEGATIVE); LEUKOCYTE ESTERASE ,URINE NEGATIVE (NEGATIVE); NITRITE,URINE NEGATIVE (NEGATIVE); PROTEIN,URINE DIPSTICK TRACE (NEGATIVE); URINE UROBILINOGEN 0.2 mg/dL (0.2 - 1)
[2018-05-11 11:28] LABS: PREGNANCY TEST, URINE NEGATIVE (NEGATIVE)
[2018-05-11 11:40] LABS: BACTERIA,URINE RARE /HPF; EPITHELIAL CELLS,URINE RARE /LPF; RBC,URINE >50 /HPF (0-5); WBC,URINE (MAN) 0-5 /HPF (0-5)
[2018-05-11 11:41] LABS: ALANINE AMINOTRANSFERASE 41 IU/L (0-55); ALBUMIN/GLOBULIN RATIO 1.3 (0.8-2.0); ALKALINE PHOSPHATASE 109 IU/L (40-150); AMYLASE 79 U/L (25-125); ANION GAP 14.6 mmol/L (8-16); BLOOD UREA NITROGEN 14 mg/dL (7-26); BUN/CREATININE RATIO 19 (6-25); CALCIUM 9.5 mg/dL (8.4-10.2); CARBON DIOXIDE 23 mmol/L (22-29); CHLORIDE 100 mmol/L (98-107); CREATININE, SERUM 0.74 mg/dL (0.57-1.11); EST GLOMERULAR FILTRATION RATE > 60 ML/MIN (60-); GLUCOSE 100 mg/dL (74-118); LIPASE 72 U/L (8-78); POTASSIUM 3.6 mmol/L (3.5-5.1); SODIUM 134 mmol/L (136-145)
--- NOTE | 2018-05-11 13:35 | Diagnostic Imaging Report ---
RIGHT UPPER QUADRANT ULTRASOUND TECHNIQUE: Ultrasound evaluation of the right upper quadrant abdomen. Color Doppler evaluation was utilized to supplement the evaluation. HISTORY: Abdominal pain COMPARISON: None available. DISCUSSION: LIVER: No focal lesion identified. The liver measures 13 cm in length in the right mid-clavicular line. BILIARY: No gallbladder stone, wall thickening, or pericholecystic fluid. The sonographic Moody's sign is reported as negative. Common bile duct measures 0.2 cm. RIGHT KIDNEY: 11 cm in length. No hydronephrosis, solid mass, or cystic lesion identified. PANCREAS: Partially obscured by regional bowel gas, but no abnormality identified within this limitation. PERITONEUM: No free fluid. VASCULATURE: The visualized portions of the aorta and inferior vena cava appear unremarkable. The portal vein is patent with hepatopedal flow. IMPRESSION: No acute sonographic abnormality. Signed by: Dr. Elroy Calderon D.O., M.M.M. on 05/11/2018 1:32 PM
[2018-05-11] MEDS ORDERED: BELLADONNA ALK/PHENOBARBITAL 5 ML UDC PO SCH (15:00)
--- NOTE | 2018-05-11 15:33 | Diagnostic Imaging Report ---
EXAMINATION: CT of the abdomen and pelvis without contrast. TECHNIQUE: Spiral CT images of the abdomen and pelvis were performed from the lung bases to the lesser trochanters. No intravenous contrast was given per renal stone protocol. Coronal and sagittal reformatted images were obtained. COMPARISON: Right upper quadrant ultrasound 05/11/2018 CLINICAL HISTORY:Right upper quadrant and right back pain DISCUSSION: ABSENCE OF INTRAVENOUS CONTRAST DECREASES SENSITIVITY FOR DETECTION OF FOCAL LESIONS AND VASCULAR PATHOLOGY. ABDOMEN/PELVIS: LOWER THORAX: Unremarkable. HEPATOBILIARY:No focal hepatic lesions. No biliary ductal dilation. The gallbladder is normal. SPLEEN: No splenomegaly. PANCREAS: No focal masses or ductal dilatation. ADRENALS: No adrenal nodules. KIDNEYS/URETERS: Punctate nonobstructing left upper pole renal calculus area no right renal, ureteral, or bladder calculi. PELVIC ORGANS/BLADDER: The urinary bladder is incompletely distended but otherwise unremarkable. Intrauterine device lies within the endometrium. Uterus is anteflexed and appears normal for age. No adnexal mass. PERITONEUM/RETROPERITONEUM: No free air or fluid. LYMPH NODES: No pelvic sidewall, retroperitoneal, or mesenteric lymphadenopathy. Evaluation is limited secondary to paucity of intraperitoneal fat. VESSELS: Limited evaluation without intravenous contrast. The abdominal aorta is nonaneurysmal. GI TRACT: No gross distention or wall thickening. BONES AND SOFT TISSUES: Transitional lumbosacral anatomy with a left-sided pseudoarthrosis between L5 and S1. No osseous destructive lesions. No focal soft tissue abnormality. Postsurgical changes of the low anterior abdominal wall. IMPRESSION: No acute intra-abdominal or pelvic CT abnormalities. Punctate nonobstructing left renal calculus. Signed by: Dr. Jacob Buckley M.D. on 05/11/2018 3:30 PM
[2018-05-11] MEDS ORDERED: DICYCLOMINE HCL 20 MG/2 ML VIAL IM ONE (16:15)
== END 2018-05-11 17:15 | disposition home or self-care (01) ==
LOC: ER 10:32
DX: R10.11 Right upper quadrant pain (principal); K76.9 Liver disease, unspecified; F41.9 Anxiety disorder, unspecified
CPT/HCPCS: 36415; 74176; 76705; 80053; 81001; 81025; 82150; 83690; 85025; 87086; 99284; C9113; J0500; J2270; J2405; J7030

== ENCOUNTER 2018-05-13 15:59 | Emergency (ER) | payer OTHER ==
[~2018-05-13] VITALS: Ht 154.9 cm; Wt 45.4 kg
--- OUTSIDE RECORDS SUMMARY | 2018-05-13 16:01 | XMS REPORT | Clinical Summary ---
Author Author RAD [facility] Organization [facility] Address Unknown Phone Unavailable Care Team Providers Care Able Bodied Watchman Name Role Phone Shailesh PCP Allergies No [...] status negative 06/07/2017 Office Visit Hepatology after 05/12/2017 Family History Medical History Relation Name Comments [...] Abnormal liver function 2:29 PM CDT after 05/12/2017 Results * Hepatic function panel (06/07/2017 2:29 PM CDT) Protein, Total 7.1 6.0 - 8.3 gm/dL [facility] Albumin 4.4 3.5 - 5.0 g/dL [facility] Total Bilirubin 0.3 0.2 - 1.2 mg/dL [facility] Bilirubin, Direct 0.2 0.1 - 0.5 mg/dL [facility] Alkaline Phosphatase 79 40 - 150 U/L [facility] AST 22 5 - 34 U/L [facility] ALT 28 6 - 55 U/L [facility] Specimen Blood Performing Organization Address City/State/Zipcode Phone Number [facility] [address] [place], [place] [phone] MEDICAL CENTER after 05/12/2017 Insurance Payer Benefit Subscriber ID Type Phone Address Plan / Group BLUE CROSS/BLUE SHIELD BCBS PPO xxxxxxxxxxxxxxx PPO [phone] [address] [place] [address] CHOICE MEDICAID MEDICAID xxxxxxxxx Medicaid OF [place]
[2018-05-13 18:32] LABS: BILIRUBIN,URINE NEGATIVE (NEGATIVE); CLARITY,URINE HAZY (CLEAR); COLOR,URINE YELLOW (YELLOW); KETONES,URINE NEGATIVE (NEGATIVE); LEUKOCYTE ESTERASE ,URINE NEGATIVE (NEGATIVE); NITRITE,URINE NEGATIVE (NEGATIVE); PROTEIN,URINE DIPSTICK NEGATIVE (NEGATIVE); URINE UROBILINOGEN 0.2 mg/dL (0.2 - 1)
[2018-05-13 18:33] LABS: PREGNANCY TEST, URINE NEGATIVE (NEGATIVE)
[2018-05-13 18:49] LABS: BACTERIA,URINE FEW /HPF; EPITHELIAL CELLS,URINE FEW /LPF; WBC,URINE (MAN) 0-5 /HPF (0-5)
--- NOTE | 2018-05-13 19:18 | Diagnostic Imaging Report ---
EXAM: CT Abdomen and Pelvis WITHOUT contrast INDICATION: Right flank pain COMPARISON: CT abdomen and pelvis 05/11/2018, right upper quadrant ultrasound 05/11/2018 TECHNIQUE: Abdomen and pelvis were scanned utilizing a multidetector helical scanner from the lung base to the pubic symphysis without administration of IV contrast. Absence of intravenous contrast decreases sensitivity for detection of focal lesions and vascular pathology. Coronal and sagittal reformations were obtained. Routine protocol was performed. IV CONTRAST: None ORAL CONTRAST: Water COMPLICATIONS: None RADIATION DOSE: Total DLP: 157.5 mGy*cm Estimated effective dose: (DLP x 0.015 x size factor) mSv Dose modulation, iterative reconstruction, and/or weight based adjustment of the mA/kV was utilized to reduce the radiation dose to as low as reasonably achievable. FINDINGS: LINES and TUBES: None. LOWER THORAX: Unremarkable HEPATOBILIARY: No focal hepatic lesions. No biliary ductal dilation. GALLBLADDER: No radio-opaque stones or sludge. No wall thickening. SPLEEN: No splenomegaly. PANCREAS: No focal masses or ductal dilatation. ADRENALS: No adrenal nodules KIDNEYS/URETERS: No hydronephrosis. No cystic or solid mass lesions. Stable punctate nonobstructing calculus in the superior left renal pole. GI TRACT: No abnormal distention, wall thickening, or evidence of bowel obstruction. Appendix is not clearly identified. There is however no fat stranding or adenopathy in the right lower quadrant to suggest appendicitis. PELVIC ORGANS/BLADDER: IUD. Otherwise, unremarkable. LYMPH NODES: No lymphadenopathy. VESSELS: Unremarkable. PERITONEUM / RETROPERITONEUM: No free air or fluid. BONES: No acute abnormalities. Transitional lumbosacral anatomy with left-sided pseudoarthrosis of L5 and S1. SOFT TISSUES: Low-transverse scar. IMPRESSION: No acute abnormalities. Signed by: DR. German Abad MD on 05/13/2018 7:15 PM
[2018-05-14 04:16] VITALS: BP 121/74
== END 2018-05-13 21:19 | disposition home or self-care (01) ==
LOC: ER 15:59
DX: R31.29 Other microscopic hematuria (principal); R10.9 Unspecified abdominal pain; R11.0 Nausea; F41.9 Anxiety disorder, unspecified
CPT/HCPCS: 74176; 81001; 81025

== ENCOUNTER → 2018-08-14 | Outpatient (CLI) | payer OTHER ==
[~2018-08-14] MED LIST changes: +IOPAMIDOL 370 MG/ML 200 ML INFUS..BTL INJ ONE; +METOPROLOL TARTRATE 25 MG TAB ONE; +METOPROLOL TARTRATE INJ 1 MG/ML VIAL ONE; +NITROGLYCERIN 0.4 MG SUBL ONE; +SODIUM CHLORIDE 0.9% 100 ML 100 ML ONE
--- NOTE | 2018-08-15 14:32 | Diagnostic Imaging Report ---
EXAM: CALCIUM SCORE AND CORONARY CTA INDICATION: ^[id number] ^[id number] ^CHEST PAIN COMPARISON: None. TECHNIQUE: Multi-detector CT technology was employed (64 MDCT Passbox). Minimal slice thickness with retrospective gating was performed following the intravenous administration of contrast material. The patient was premedicated with 50 mg by mouth metoprolol and 0.4 mg sublingual nitroglycerin for heart rate control and coronary dilation, respectively. IV CONTRAST: 100 mL of Isovue-370 ORAL CONTRAST: None COMPLICATIONS: None RADIATION DOSE: Total DLP: 1276.97 mGy*cm Estimated effective dose: (DLP x 0.015 x size factor) mSv CTDIvol has been reviewed. It is below the limits set by the Radiation Protocol Committee (RPC). For optimization of anatomic evaluation, multiplanar reconstruction, maximum intensity projections, and advanced 3-D off-line postprocessing were performed on a dedicated stand-alone workstation under the direct supervision of the interpreting physician. QUALITY: Fair due to motion artifact related to irregular heart beat and tachycardia during the exam. Unable to give more beta amanda medication due to low blood pressure. FINDINGS: CALCIUM SCORE: The observed Agatston Calcium Score of 0 is at percentile 50% for subjects of the same age and gender who are free of clinical cardiovascular disease and treated diabetes. The Agatston score for each vessel is as follows: LM: 0 LAD: 0 LCx: 0 RCA: 0 DISTRIBUTION OF THE CALCIFIED PLAQUES: No identifiable calcified plaques in the coronary arteries. CORONARY ANATOMY: There is normal origin of the coronary arteries. Left Main Coronary Artery: The left main is normal sized vessel that bifurcates into the LAD and circumflex. There is no evidence of atherosclerotic changes or stenotic disease. Left Anterior Descending Coronary Artery: The LAD is a normal size vessel that wraps around the apex. It gives rise to 2 acute diagonal branches. There is no evidence of atherosclerotic changes or stenotic disease. Left Circumflex Coronary Artery: The LCX is a normal size vessel, which is non-dominant. It gives rise to 2 obtuse marginal branches. There is no evidence of atherosclerotic changes or stenotic disease. Right Coronary Artery: The RCA is a normal size vessel, which is dominant. It gives rise to a conus branch, AV junie branch, and 2 acute marginal branches. In its distal segment it bifurcates into the PDA and PV branch. Severe motion artifact limits evaluation of the mid segment. There is no evidence of atherosclerotic changes or stenotic disease in the remaining RCA. CARDIAC MORPHOLOGY AND FUNCTION: The right and left atria and ventricles are morphologically normal. There is normal resting global left ventricular systolic function. LVEF: 73%, LV end diastolic volume: 204 cc LV end systolic volume: 53 cc LV stroke volume: 150 cc LIMITED CHEST: Limited views of the visualized chest show no abnormality within chest wall and mediastinum. No mediastinal lymphadenopathy. The visualized lungs are clear. The visualized portions of the ascending and descending thoracic aorta are of normal size. Small hiatal hernia. LIMITED ABDOMEN: Limited images of the upper abdomen reveal no abnormalities of the visualized organs. BONES: No acute osseous abnormalities. IMPRESSION: 1. Total Agatston Calcium Score: 0 that corresponds to percentile 50%, representing no identifiable calcified plaques in the coronary arteries. 2. Normal coronary anatomy. 3. Limited evaluation of the coronary arteries due to motion artifact. Mid RCA is nondiagnostic. However, there is no evidence of atherosclerotic changes or stenotic disease in the remaining coronary arteries. CAD-KIMBERLY: N for mid RCA and 0 for remaining coronary arteries. Reference: [email or web address] These findings were discussed with Dr Wilcox on 08/15/2018 2:30 PM. Signed by: Dr. Shante Mcnamara M.D. on 08/15/2018 2:29 PM
== END ==
LOC: CT 08:06
PROVIDERS: ATTEND Internal Medicine Interventional Cardiology
DX: R07.9 Chest pain, unspecified (principal)
CPT/HCPCS: 75574; 81025; Q9967

== ENCOUNTER → 2018-09-22 | Day surgery (SDC) | payer OTHER ==
[~2018-09-22] MED LIST changes: -ADDERALL 10 MG10 MG; +ADDERALL 10 MG10 MG PO; +ALPRAZOLAM0.25 MG PO; +CEFTRIAXONE SOD 1 GM/NS 50 ML 50 ML IV ONE; +CYMBALTA30 MG PO; +DEXAMETHASONE SOD PHOS INJ 4 MG/ML VIAL ONE; +FENTANYL CITRATE/PF 100MCG/2 ML INJ ONE; +HYDROCODONE/APAP 5MG-325MG TAB ONE; -IOPAMIDOL 370 MG/ML 200 ML INFUS..BTL INJ ONE; +IOPAMIDOL 610MG/1ML 300 MG/ML VIAL IV ONE; +LAMOTRIGINE100 MG PO; +LIDOCAINE HCL 2% LOCAL INJ 5 ML SDV VIAL INJ ONE; -METOPROLOL TARTRATE 25 MG TAB ONE; -METOPROLOL TARTRATE INJ 1 MG/ML VIAL ONE; +MIDAZOLAM HCL 2 MG/2 ML VIAL ONE; -NITROGLYCERIN 0.4 MG SUBL ONE; +ONDANSETRON HCL INJ 2MG/ML 2ML 2 MG/ML VIAL ONE; +PROPOFOL IV EMULSION 10 MG/ML 20 ML VIAL ONE; +PROPRANOLOL HCL10 MG PO; +SEVOFLURANE INHAL SOLN 250 ML PEN BTL ONE; -SODIUM CHLORIDE 0.9% 100 ML 100 ML ONE
--- OUTSIDE RECORDS SUMMARY | 2018-09-22 07:28 | XMS REPORT | Clinical Summary ---
Author Author [facility] Organization [facility] Address Unknown Phone Unavailable Care Team Providers Care Hotel Staff Member Name Role Phone Mario Prince MD PCP Allergies No Known Allergies Medications End Date Status Medication Sig Dispensed Refills Start Date 09/10/2018 naproxen (NAPROSYN) 375 Take 1 tablet 20 tablet 0 201 MG tablet (375 mg 9 total) by mouth 2 (two) times a day with meals for 30 days. Active Problems Not on file Encounters Care Team Description Date Type Specialty Del Manjarrez MD Vaginal pain (Primary Dx) 08/10/2018 Emergency Emergency Medicine - 08/11/2018 after 09/21/2017 Social History Date Tobacco Use Types Packs/Day Years Used Never Assessed Sex Assigned at Date Recorded Not on file Industry Job Start Date Occupation Not on file Not on file Not on file Travel End Travel History Travel Start No recent travel history available. Last Filed Vital Signs Time Taken Vital Sign Reading 08/11/2018 1:25 AM CDT Blood Pressure 110/68 08/11/2018 1:25 AM CDT Pulse 88 08/10/2018 9:17 PM CDT Temperature 36.9 C (98.5 F) 08/11/2018 1:25 AM CDT Respiratory Rate 18 08/11/2018 1:25 AM CDT Oxygen Saturation 98% - Inhaled Oxygen - Concentration - Weight - 08/10/2018 9:19 PM CDT Height 154.9 cm (5' 1") - Body Mass Index - Plan of Treatment Care Team Description Date Type Specialty Justina Kaur MD [address] [place], [place] [id number] 09/26/2018 Office Visit Urogynecology Procedures Comments Procedure Name Priority Date/Time Associated Diagnosis GRAM STAIN STAT 08/11/2018 12:10 AM CDT URINE CULTURE STAT 08/11/2018 12:10 AM CDT HCG QUALITATIVE, URINE STAT 08/10/2018 SCREEN 11:56 PM CDT URINALYSIS SCREEN AND STAT 08/10/2018 MICROSCOPY, WITH REFLEX 11:56 PM CDT TO CULTURE ESTIMATED GFR STAT 08/10/2018 9:55 PM CDT LIPASE LEVEL STAT 08/10/2018 9:55 PM CDT HEPATIC FUNCTION PANEL STAT 08/10/2018 9:55 PM CDT BASIC METABOLIC PANEL STAT 08/10/2018 9:55 PM CDT HC COMPLETE BLD COUNT STAT 08/10/2018 W/AUTO DIFF 9:55 PM CDT after 09/21/2017 Results * Gram stain (08/11/2018 12:10 AM CDT) Gram stain No WBC's [place] result Occasional Gram positive rods CONFUCIANIST Comment: HOSPITAL Specimen Information Specimen Source: Urine Specimen Site: Clean catch Specimen Urine Performing Organization Address City/[facility] Phone Number [facility] DEPARTMENT OF [address] [place] [address] PATHOLOGY AND [facility] MEDICINE [address] * Urine culture (08/11/2018 12:10 AM CDT) Urine culture Mixed reynaldo 10-5 col/cc [place] isolate Comment: [facility] Specimen Information HOSPITAL Specimen Source: Urine Specimen Site: Clean catch Specimen Urine Performing Organization Address City/[facility]/Zipcode Phone Number [facility] DEPARTMENT OF [address] [place] [address] PATHOLOGY AND [facility] [address] * Urinalysis screen and microscopy, with reflex to culture (08/10/2018 11:56 PM CDT) Specimen site Clean catch [facility] Color, UA Yellow [facility] Appearance, UA Slightly-Cloudy [facility] Specific 1.014 1.001 - 1.035 [place] gravity, UA [facility] pH, UA 6.0 5.0 - 8.5 [facility] Protein, UA Negative Negative [facility] Glucose, UA Negative Negative [facility] Ketones, UA Negative Negative [facility] Bilirubin, UA Negative Negative [facility] Blood, UA Negative Negative [facility] Nitrite, UA Negative Negative [facility] Urobilinogen, Negative <2.0 [facility] Leukocyte Trace (A) Negative [place] esterase, [facility] Epithelial Many /HPF [place] cells, UA [facility] WBC, UA 0-5 0 - 4 /HPF [facility] RBC, UA 0-5 0 - 5 /HPF [facility] Bacteria, UA None seen None seen [facility] Yeast, UA None seen [facility] Yeast with None seen [place] [facility] Hyaline casts, 3-5 /LPF [facility] Specimen Urine Performing Organization Address [facility] Centercomt Phone Number [address] [place] [address] PATHOLOGY AND GENOMIC MEDICINE [address] * hCG qualitative, urine screen (08/10/2018 11:56 PM CDT) Pathologist [facility] hCG Negative Negative [place] qualitative, Comment: [facility] urine The manufacturers stated [facility] sensitivity of HcG test for serum is >/=10 mIU/ml and urine is >/=20mIU/ml. Specimen Urine Performing Organization Address [facility] Cent[facility]ode Phone Number [address] [place] [address] PATHOLOGY AND GENOMIC MEDICINE [address] * Estimated GFR (08/10/2018 9:55 PM CDT) [facility] Estimated GFR >=90 mL/min/1.73 m2 [place] Comment: [facility] rpretation G1 >=90 Normal or high G2 60-89Mildly decreased [id number] Mildly to moderately decreased [id number] Moderately to severely decreased G4 15-29Severely decreased G5 <15Kidney failure The eGFR was calculated using the Chronic Kidney Disease Epidemiology Collaboration (CKD-EPI) equation. Interpretation is based on recommendations of the National Kidney Foundation-Kidney Disease Outcomes Quality Initiative (NKF-KDOQI) published in 2014. Specimen Plasma specimen Performing Organization Address City/State/Zipcode [place] [address] [place] [address] PATHOLOGY AND GENOMIC MEDICINE [facility] [address] [place] [address] [facility] * CBC with platelet and differential (08/10/2018 9:55 PM CDT) WBC 6.89 4.50 - 11.00 k/uL [facility] RBC 4.60 4.20 - 5.50 m/uL [facility] HGB 13.6 12.0 - 16.0 g/dL [facility] HCT 41.1 37.0 - 47.0 % [facility] MCV 89.3 82.0 - 100.0 fL [facility] MCH 29.6 27.0 - 34.0 pg [facility] MCHC 33.1 31.0 - 37.0 g/dL [facility] RDW - SD 42.6 37.0 - 55.0 fL [facility] MPV 8.7 (L) 8.8 - 13.2 fL [facility] Platelet count 277 150 - 400 k/uL [facility] Nucleated RBC 0.00 /100 WBC [facility] Neutrophils 58.7 39.0 - 69.0 % [facility] Lymphocytes 32.4 25.0 - 45.0 % [facility] Monocytes 7.1 0.0 - 10.0 % [facility] Eosinophils 0.9 0.0 - 5.0 % [facility] Basophils 0.6 0.0 - 1.0 % [facility] Specimen Blood Performing Organization Address [facility] Phone Number [address] [place] [address] PATHOLOGY AND GENOMIC MEDICINE [address] * Lipase level (08/10/2018 9:55 PM CDT) Lipase 70 (H) 13 - 60 U/L [facility] Specimen Plasma specimen Performing Organization Address [facility] Phone Number [address] [place] [address] PATHOLOGY AND [facility]ICINE [address] * Hepatic function panel (08/10/2018 9:55 PM CDT) Albumin 5.0 3.5 - 5.0 g/dL [facility] Total bilirubin 0.2 0.0 - 1.2 mg/dL [facility] Bilirubin <0.1 0.0 - 0.3 mg/dL [place] direct [facility] Alkaline 112 (H) 35 - 104 U/L [place] phosphatase [facility] Protein 8.1 6.3 - 8.3 g/dL [place] Comment: [facility] 4.6-7.0 g/dL 1 week 4.4-7.6 g/dL 7 months-1year 5.1-7.3 g/dL 1-2 years5.6-7 .5 g/dL >3 years6.0-8 .0 g/dL 18-150 6.3-8.3 g/dL ALT 18 5 - 50 U/L [facility] AST 16 10 - 35 U/L [facility] Specimen Plasma specimen Performing Organization Address [facility] Phone Number [address] [place] [address] PATHOLOGY AND GENOMIC MEDICINE [address] * Basic metabolic panel (08/10/2018 9:55 PM CDT) Sodium 136 135 - 148 mEq/L [facility] Potassium 3.6 3.5 - 5.0 mEq/L [facility] Chloride 99 98 - 112 mEq/L [facility] CO2 25 24 - 31 mEq/L [facility] Anion gap 12@ANIO 7 - 15 mEq/L [facility] BUN 14 6 - 20 mg/dL [facility] Creatinine 0.80 0.50 - 0.90 mg/dL [facility] Glucose 89 65 - 99 mg/dL [facility] Calcium 9.9 8.3 - 10.2 mg/dL [facility] Specimen Plasma specimen Performing Organization Address City/State/Zipcode Phone [place] [address] [place] [address] PATHOLOGY AND GENOMIC MEDICINE [facility] [address] [place] [address] [facility] after 09/21/2017 Insurance Type Payer Benefit Subscriber ID Effective Phone Address Plan / Dates Group HMO AETNA AETNA xxxxxxxxxx [id number] HMO,POS,EP resent O, MC/EC Advance Directives Patient has advance care planning documents on file. For more information, aries abdi contact: Er[facility] [address] [place] [address]
--- OUTSIDE RECORDS SUMMARY | 2018-09-22 07:28 | XMS REPORT | Clinical Summary ---
Author Author [facility] Organization [facility] Address Unknown Phone Unavailable Care Team Providers Care Cage Maker Machine Name Role Phone Sharpanderson PCP Allergies No [...] Anxiety. tract infection without hematuria, site unspecified Active Problems No known active problems Encounters Care Team Description Date Type Specialty Kristen Palencia Appointment (unable to leave a VM. letter sent to patient) 02/02/2018 Telephone Hepatology after 09/21/2017 Family History Medical History Relation Name Comments [...] travel history available. Last Filed Vital Signs Not on file Plan of Treatment Health Maintenance Due Date Last Done Comments INFLUENZA VACCINE 12/26/2017 Results Not on fileafter 09/21/2017 Insurance Payer Benefit Subscriber ID Type Phone Address Plan / Group BLUE CROSS/BLUE SHIELD BCBS PPO xxxxxxxxxxxxxxx PPO [phone] [address] [place] [address] CHOICE MEDICAID MEDICAID xxxxxxxxx Medicaid OF [place]
[2018-09-22 09:55] VITALS: BP 119/85
--- NOTE | 2018-09-22 13:39 | Operative Report ---
DATE OF PROCEDURE: 09/22/2018 SURGEON: Rigo Ernandez MD PREOPERATIVE DIAGNOSES: 1. Multiple chronic urinary tract infections. 2. Gross hematuria. 3. Clinical signs of interstitial cystitis. POSTOPERATIVE DIAGNOSES: 1. Multiple chronic urinary tract infections. 2. Gross hematuria. 3. Clinical signs of interstitial cystitis. PROCEDURES: 1. Cystourethroscopy with hydrodistention (entirely separate procedure for clinical signs and symptoms of interstitial cystitis with a history of gross hematuria). 2. Cystourethroscopy with left ureteral catheterization and left retrograde pyelogram (separate procedure for gross hematuria). 3. Cystourethroscopy with right ureteral catheterization and right retrograde pyelogram (separate procedure for gross hematuria). 4. Supervision of fluoroscopy. 5. Interpretation of retrograde pyelography. ANESTHESIA: General. ESTIMATED BLOOD LOSS: Minimal. COMPLICATIONS: None. INDICATIONS: Ms. Gunter is a very pleasant 22-year-old female with a history of multiple chronic urinary tract infections as well as gross hematuria. She and I had a long discussion about alternatives, the risks and benefits, including doing nothing, cystoscopy, IVP, retrograde pyelograms, renal ultrasound, hydrodistention. She voiced understanding of the options, alternatives, the risks and benefits and elected to proceed. PROCEDURE IN DETAIL: After informed consent was obtained, the patient was taken to operative suite, placed supine on table, underwent general anesthesia by the Anesthesia service. She was placed in the dorsal lithotomy position, sterilely prepped and draped in standard fashion for cystoscopy. External examination revealed no evidence of vaginal wall prolapse. No pelvic descent even with pressure. A 21-[place] cystoscope was inserted per urethra. Panendoscopy of bladder revealed no tumors and no stones. Both ureteral orifices were in normal anatomic location and position and were seen to efflux clear urine. Hydrodistention was performed with a capacity of 800 mL, no glomerulations, no Hunner's ulcers. Bilateral retrograde pyelograms were performed which were normal. Of note, there was a capacious upper pole moiety in the right collecting system which did drain under fluoroscopy. Bladder was drained and the patient was awakened from anesthesia and transported to the recovery room in excellent condition. Supervision of fluoroscopy and interpretation of retrograde pyelography: I was present for the entire procedure and I supervised the use of fluoroscopy, there was no radiologist present. Attention was turned towards the left and right ureteral orifices which were catheterized with an 8-[place] cone-tipped catheter in retrograde fashion, contrast was injected revealing delicate ureters, delicate pelvocaliceal systems with the exception of a right upper pole moiety, which was dilated. This did drain under fluoroscopy. IMPRESSION: Normal bilateral retrograde pyelograms. MD SHANNA Cope/ELANA /[id number]
== END | disposition home or self-care (01) ==
LOC: OR 07:08
PROVIDERS: ATTEND Urology
DX: N39.0 Urinary tract infection, site not specified (principal); N39.46 Mixed incontinence; N81.89 Other female genital prolapse; R35.1 Nocturia; F98.8 Other specified behavioral and emotional disorders with onset usually occurring in childhood and adolescence; E78.5 Hyperlipidemia, unspecified; K21.9 Gastro-esophageal reflux disease without esophagitis; K58.9 Irritable bowel syndrome, unspecified; K76.0 Fatty (change of) liver, not elsewhere classified; F17.210 Nicotine dependence, cigarettes, uncomplicated; Z84.1 Family history of disorders of kidney and ureter
CPT/HCPCS: 52005; 74420; 81025; C1758; J0696; J1100; J2001; J2250; J2405; J2704; Q9967; J3010

== ENCOUNTER → 2019-10-09 | Outpatient (CLI) | payer OTHER ==
[~2019-10-09] MED LIST changes: -CEFTRIAXONE SOD 1 GM/NS 50 ML 50 ML IV ONE; -DEXAMETHASONE SOD PHOS INJ 4 MG/ML VIAL ONE; -FENTANYL CITRATE/PF 100MCG/2 ML INJ ONE; -HYDROCODONE/APAP 5MG-325MG TAB ONE; -IOPAMIDOL 610MG/1ML 300 MG/ML VIAL IV ONE; -LIDOCAINE HCL 2% LOCAL INJ 5 ML SDV VIAL INJ ONE; -MIDAZOLAM HCL 2 MG/2 ML VIAL ONE; -ONDANSETRON HCL INJ 2MG/ML 2ML 2 MG/ML VIAL ONE; -PROPOFOL IV EMULSION 10 MG/ML 20 ML VIAL ONE; -SEVOFLURANE INHAL SOLN 250 ML PEN BTL ONE
--- NOTE | 2019-10-09 11:30 | Diagnostic Imaging Report ---
EXAM: US ABDOMEN COMPLETE DATE: 10/09/2019 10:49 AM INDICATION: Abdominal pain COMPARISON: CT abdomen and pelvis of 05/13/2018 TECHNIQUE: Transverse and longitudinal lancaster scale and color doppler sonographic images of the upper abdomen were obtained. FINDINGS: LIVER 13.0 cm in the right midclavicular line. Normal echogenicity of the liver with normal contour, no masses. SPLEEN 9.1 cm in maximum diameter. Normal echogenicity, no masses. GALLBLADDER No gallbladder wall thickening, distension, stone, or pericholecystic fluid. Negative reported sonographic Moody's sign. The gallbladder wall measures 2mm BILE DUCTS No intra nor extra-hepatic biliary dilation. Common bile duct measures 3mm PANCREAS: Visualized portions are normal. RIGHT KIDNEY: 10.0 cm Echogenicity: Normal Collecting System: No hydronephrosis Stones: None Cyst/Mass: None LEFT KIDNEY: 9.1 cm Echogenicity: Normal Collecting System: No hydronephrosis Stones: None Cyst/Mass: None VESSELS: Aorta: Visualized portions are within normal size limits Inferior Vena Cava: Visualized portions are normal Main Portal Vein: 0.9 cm, normal size with hepatopetal flow. FREE FLUID: None IMPRESSION: Unremarkable abdominal ultrasound. Signed by: Dennis Garg MD on 10/09/2019 11:27 AM
== END ==
LOC: US 10:30
PROVIDERS: ATTEND Family Medicine
DX: R10.11 Right upper quadrant pain (principal); R74.0 Nonspecific elevation of levels of transaminase and lactic acid dehydrogenase [LDH]
CPT/HCPCS: 76700